=== PATIENT | male | born 1980 | race Caucasian/White ===

== ENCOUNTER → 2020-09-03 | Outpatient (CLI) | payer BC, OTHER ==
--- NOTE | 2020-09-03 08:44 | PFTRPT ---
Site: [facility], [address] [place] [address], [address] ID: [id number] Name: CHHAYA CONTRERAS Visit Date: 09/03/2020 Second ID: [id number] Referring Doctor: LILLIE GE M.D. Reviewing Doctor: Jake Cancino MD Parking Assistant: Won COOLEY RRT Age: 40 : 1980 Sex: Male Race: Height: 72.00 Inches Weight: 230.00 Lbs BSA: 2.26 Order IDs: [id number] Requested Test(s): <RESP-PFT.PFT B/A> Diagnosis: R07.9 test meet the ATS standards for acceptability and repeatability. Pt was given four puffs of albuterol for post bronchodilator. Review Status: Not Reviewed Pre-Bronch Post-Bronch Pred Actual %Pred Actual %Chng SPIROMETRY FVC (L) 5.67 4.97 87 4.84 -2 FEV1 (L) 4.52 4.14 91 4.15 FEV1/FVC (%) 80 83 104 86 2 FEF 25% (L/sec) 8.71 8.27 95 8.74 5 FEF 50% (L/sec) 5.61 5.73 102 6.19 8 FEF 75% (L/sec) 2.08 1.98 95 1.87 -5 FEF 25-75% (L/sec) 4.25 4.72 110 4.82 2 FEF Max (L/sec) 10.66 9.06 85 9.46 4 FIVC (L) 4.62 4.41 -4 FIF 50% (L/sec) 5.29 7.63 144 6.98 -8 FIF Max (L/sec) 7.64 7.75 1 MVV (L/min) 175 170 97 Expiratory Time (sec) 6.39 5.99 -6 Back Extrap Vol (L) 0.15 0.15 -4 Time To FEFmax (sec) 0.106 0.097 -9 LUNG VOLUMES SVC (L) 5.43 4.71 86 IC (L) 3.64 3.85 105 ERV (L) 1.79 0.86 47 TGV (L) 3.69 2.68 72 RV (Pleth) (L) 1.90 1.83 96 TLC (Pleth) (L) 7.33 6.54 89 RV/TLC (Pleth) (%) 26 28 107 DIFFUSION DLCOunc (ml/min/mmHg) 34.26 28.79 84 DL/VA (ml/min/mmHg/L) 4.67 4.65 99 VA (L) 7.33 6.19 84 BHT (sec) 9.81 IVC (L) 4.67 TLC (SB) (L) 6.34 AIRWAYS RESISTANCE Raw (cmH2O/L/s) 1.45 0.73 50 Gaw (L/s/cmH2O) 1.03 1.39 134 sRaw (cmH2O*s) 4.76 2.20 46 sGaw (1/cmH2O*s) 0.20 0.45 227
== END ==
LOC: M CARPUL 08:03
PROVIDERS: ATTEND Internal Medicine Cardiovascular Disease
DX: R07.9 Chest pain, unspecified (principal)

== ENCOUNTER → 2020-09-08 | Outpatient (CLI) | payer BC, OTHER ==
[~2020-09-08] MED LIST: METHACHOLINE KIT (J7674) INH ONE
--- NOTE | 2020-09-08 09:18 | PFTRPT ---
Site: [facility], [address] [place], [address] ID: [id number] Name: CHHAYA CONTRERAS Visit Date: 09/08/2020 Second ID: [id number] Referring Doctor: LILLIE GE M.D. Reviewing Doctor: Jake Cancino MD [employer]: Won COOLEY RRT Age: 40 : 1980 Sex: Male Race: Height: 72.00 Inches Weight: 230.00 Lbs BSA: 2.26 Order IDs: [id number] Requested Test(s): <RESP-PFT.METH CHAL> Diagnosis: R07.9 of albuterol for post bronchodilator. Review Status: Not Reviewed Pre-Bronch Post-Bronch Pred Actual %Pred Actual %Chng SPIROMETRY FVC (L) 5.67 4.86 85 4.87 FEV1 (L) 4.52 4.14 91 4.06 -1 FEV1/FVC (%) 80 85 106 83 -2 FEF 25% (L/sec) 8.70 7.73 88 8.09 4 FEF 50% (L/sec) 5.61 5.84 104 6.31 7 FEF 75% (L/sec) 2.08 2.14 102 1.86 -12 FEF 25-75% (L/sec) 4.25 4.78 112 4.65 -2 FEF Max (L/sec) 10.66 9.32 87 8.10 -13 FIVC (L) 4.56 4.48 -1 FIF 50% (L/sec) 5.29 7.63 144 8.29 8 FIF Max (L/sec) 8.11 8.33 2 Expiratory Time (sec) 4.91 6.33 29 Back Extrap Vol (L) 0.14 0.22 53 Time To FEFmax (sec) 0.083 0.138 65
== END ==
LOC: M CARPUL 08:19
PROVIDERS: ATTEND Internal Medicine Cardiovascular Disease
DX: R07.9 Chest pain, unspecified (principal)